=== PATIENT | female | born 1980 | race Caucasian/White ===

== ENCOUNTER 2024-04-24 19:47 | Emergency (ER) | payer OTHER ==
[2024-04-24] MEDS: HYDROcodone/APAP 5-325MG 1 EACH TAB PO STA (20:26)
[2024-04-24] MEDS: KETOROLAC 15 MG/ML 1 ML VIAL IM STA (20:26)
--- NOTE | 2024-04-24 20:30 | ED ---
General Adult HPI - General Source: patient, RN notes reviewed Mode of arrival: ambulatory Limitations: no limitations <Yenny Renee - Last Filed: 04/25/24 11:10> <Misti Blankenship - Last Filed: 04/25/24 22:26> - General Chief complaint: Extremity Injury, Lower Stated complaint: Left ankle injury Time Seen by Provider: 04/24/24 20:03 - History of Present Illness Initial comments: 43-year-old female presents to the emergency department for left ankle injury. Patient reports that she was walking down the steps when one of the step broke. Patient states that this caused her to twist her ankle. She states that this occurred 3 days ago and continues to report pain. She does state that he was seen over the facility at that time and had x-rays performed. She was told that her ankle sprain. She states that since then she has not been unable to bear weight on it. She reports that she was provided an mari bandage but no crutches or brace. (Yenny Renee) - Related Data Home Medications Medication Instructions Recorded Confirmed No Known Home Medications 08/02/14 08/05/14 Allergies Allergy/AdvReac Type Severity Reaction Status Date / Time No Known Allergies Allergy Verified 08/05/14 21:44 Review of Systems ROS Other: All systems not noted in ROS Statement are negative. <Yenny Renee - Last Filed: 04/25/24 11:10> ROS Other: All systems not noted in ROS Statement are negative. <Misti Blankenship - Last Filed: 04/25/24 22:26> ROS Statement: Those systems with pertinent positive or pertinent negative responses have been documented in the HPI. Past Medical History Past Medical History: No Reported History Additional Past Medical History / Comment(s): depression, obesity History of Any Multi-Drug Resistant Organisms: None Reported Past Surgical History: No Surgical Hx Reported Past Psychological History: No Psychological Hx Reported Smoking Status: Never smoker Past Alcohol Use History: None Reported Past Drug Use History: None Reported <Yenny Renee - Last Filed: 04/25/24 11:10> General Exam Limitations: no limitations General appearance: alert, in no apparent distress Head exam: Present: atraumatic, normocephalic, normal inspection Eye exam: Present: normal appearance, PERRL, EOMI. Absent: scleral icterus, conjunctival injection, periorbital swelling Respiratory exam: Present: normal lung sounds bilaterally. Absent: respiratory distress, wheezes, rales, rhonchi, stridor Cardiovascular Exam: Present: regular rate, normal rhythm, normal heart sounds. Absent: systolic murmur, diastolic murmur, rubs, gallop, clicks Extremities exam: Present: normal inspection, full ROM, tenderness (left lateral foot), normal capillary refill. Absent: pedal edema, joint swelling, calf tenderness Neurological exam: Present: alert, oriented X3 Psychiatric exam: Present: normal affect, normal mood Skin exam: Present: warm, dry, intact, other (ecchymosis to the lateral left foot). Absent: normal color <Yenny Renee - Last Filed: 04/25/24 11:10> Course Vital Signs 04/24/24 04/25/24 20:04 00:04 Temperature 98.6 F 98.4 F Pulse Rate 108 H 96 Respiratory 20 17 Rate Blood Pressure 158/62 147/62 O2 Sat by Pulse 96 97 Oximetry Medical Decision Making <Yenny Renee - Last Filed: 04/25/24 11:10> - Medical Decision Making Was pt. sent in by a medical professional or institution (, PA, MARKET DEVELOPER, urgent care, hospital, or residential...) When possible be specific @ -No Did you speak to anyone other than the patient for history (EMS, parent, family, police, friend...)? What history was obtained from this source @ -No Did you review nursing and triage notes (agree or disagree)? Why? @ -I reviewed and agree with nursing and triage notes Were old charts reviewed (outside hosp., previous admission, EMS record, old EKG, old radiological studies, urgent care reports/EKG's, residential records)? Report findings @ -No old charts were reviewed Differential Diagnosis (chest pain, altered mental status, abdominal pain women, abdominal pain men, vaginal bleeding, weakness, fever, dyspnea, syncope, headache, dizziness, GI bleed, back pain, seizure, CVA, palpatations, mental health, musculoskeletal)? @ -Differential Musculoskeletal Muscular strain, contusion, ligament sprain, fracture, arthritis, septic arthritis, bursitis, cellulitis, muscle spasm, nerve compression, DVT, arterial occlusion, herpes zoster, electrolyte abnormality, tumor.... This is not meant to be in all inclusive list EKG interpreted by me (3pts min.). @ -None X-rays interpreted by me (1pt min.). @ -XR of left foot and ankle show no evidence of acute fracture or dislocation CT interpreted by me (1pt min.). @ -None done U/S interpreted by me (1pt. min.). @ -None done What testing was considered but not performed or refused? (CT, X-rays, U/S, labs)? Why? @ -None What meds were considered but not given or refused? Why? @ -None Did you discuss the management of the patient with other professionals (professionals i.e. , PA, MARKET DEVELOPER, lab, RT, psych nurse, medical social worker, hspt tutor, teacher, loan officer, community case manager)? Give summary @ -No Was smoking cessation discussed for >3mins.? @ -No Was critical care preformed (if so, how long)? @ -No Were there social determinants of health that impacted care today? How? (Homelessness, low income, unemployed, alcoholism, drug addiction, transportation, low edu. Level, literacy, decrease access to med. care, [facility], rehab)? @ -No Was there de-escalation of care discussed even if they declined (Discuss DNR or withdrawal of care, Hospice)? DNR status @ -No What co-morbidities impacted this encounter? (DM, HTN, Smoking, COPD, CAD, Cancer, CVA, ARF, Chemo, Hep., AIDS, mental health diagnosis, sleep apnea, morbid obesity)? @ -None Was patient admitted / discharged? Hospital course, mention meds given and route, prescriptions, significant lab abnormalities, going to OR and other pertinent info. @ -Discharge. Patient presented to the emergency department for evaluation of left ankle injury. X-rays of the left foot and ankle were obtained. There is a delay in radiology read of imaging studies. Patient was discharged and provided crutches. Discussed with patient that I would call her if there are any abnormal findings picked up by the radiologist. Patient understanding and agreeable discharge plan. Patient stable at time of discharge. Case discussed with Dr. Blankenship. X-rays reviewed which show no evidence acute fracture or dislocation. Undiagnosed new problem with uncertain prognosis? @ -No Drug Therapy requiring intensive monitoring for toxicity (Heparin, Nitro, Insulin, Cardizem)? @ -No Were any procedures done? @ -No Diagnosis/symptom? @ -Left ankle sprain Acute, or Chronic, or Acute on Chronic? @ -Acute Uncomplicated (without systemic symptoms) or Complicated (systemic symptoms)? @ -Uncomplicated Side effects of treatment? @ -No Exacerbation, Progression, or Severe Exacerbation? @ -No Poses a threat to life or bodily function? How? (Chest pain, USA, DC, pneumonia, PE, COPD, DKA, ARF, appy, cholecystitis, CVA, Diverticulitis, Homicidal, Suicidal, threat to staff... and all critical care pts) @ -No (Yenny Renee) Disposition Is patient prescribed a controlled substance at d/c from ED?: No <Yenny Renee - Last Filed: 04/25/24 11:10> <Misti Blankenship - Last Filed: 04/25/24 22:26> Clinical Impression: Sprain of left foot Disposition: HOME SELF-CARE Condition: Stable Instructions (If sedation given, give patient instructions): Foot Sprain (ED) Additional Instructions: Please follow up with your primary care provider. Return to the emergency department for new or worsening symptoms. Referrals: Dilip Flores DO [Primary Care Provider] - 1-2 days Jay Berg MD [STAFF PHYSICIAN] - 1-2 days
--- NOTE | 2024-04-24 23:43 | XR ---
EXAMINATION TYPE: XR ankle complete LT DATE OF EXAM: 04/24/2024 9:06 PM CLINICAL INDICATION:Female, 43 years old with history of twisted, pain; [facility] COMPARISON: None TECHNIQUE: The left ankle is imaged in frontal, lateral and oblique projections. FINDINGS: Exam is limited by patient body habitus. Osseous mineralization appears appropriate. There is a small -to-moderate sized plantar calcaneal spur. No acute fracture lucency or significant malalignment. Ank le mortise appears preserved. Talar dome looks intact. Soft tissues appear within normal limits.. No radiopaque foreign body is seen. IMPRESSION: No evidence of acute fracture or dislocation of the ankle.
--- NOTE | 2024-04-24 23:45 | XR ---
EXAMINATION TYPE: XR foot complete LT DATE OF EXAM: 04/24/2024 9:06 PM CLINICAL INDICATION:Female, 43 years old with history of twisted, pain; [facility] COMPARISON: None. TECHNIQUE: Three views left foot were obtained. FINDINGS: Exam limited by patient body habitus. No evidence of fracture or significant malalignment. Joint spaces are maintained. Soft tissues are un remarkable. No radiopaque foreign body is seen. IMPRESSION: No evidence of acute fracture or dislocation.
[2024-04-25 00:06] VITALS: BP 147/62; PULSE 96; RESP 17; TEMP 98.4
== END 2024-04-25 00:04 | disposition home or self-care (01) ==
LOC: EC 19:47
DX: S93.402A Sprain of unspecified ligament of left ankle, initial encounter (principal); S93.602A Unspecified sprain of left foot, initial encounter; E66.9 Obesity, unspecified; Z68.43 Body mass index [BMI] 50.0-59.9, adult; X50.1XXA Overexertion from prolonged static or awkward postures, initial encounter; Y93.01 Activity, walking, marching and hiking
CPT/HCPCS: 73610; 73630; 99284; 96372; J1885